=== PATIENT | female | born 1965 | race Caucasian/White ===

== ENCOUNTER 2018-01-17 15:42 | Emergency (ER) | payer SELFPAY ==
[~2018-01-17] VITALS: Ht 157.5 cm; Wt 68.2 kg
[2018-01-17 16:01] VITALS: BP 149/105; Ht 157.5 cm; Wt 68.2 kg
== END 2018-01-17 17:31 | disposition left against medical advice (07) ==
LOC: D.ER 15:42
DX: T63.461A Toxic effect of venom of wasps, accidental (unintentional), initial encounter (principal); Y92.89 Other specified places as the place of occurrence of the external cause